=== PATIENT | female | born 1985 | race Caucasian/White ===

== ENCOUNTER 2016-10-21 00:21 | Inpatient (IN) | payer OTHER ==
[~2016-10-21] VITALS: Ht 157.5 cm; Wt 86.2 kg
--- NOTE | 2016-10-21 00:34 | Labor & Delivery Summary ---
Delivery Summary Vaginal Delivery: Vaginal: vertex Episiotomy/Lacerations: Episiotomy/Lacerations: yes Type: first degree Repair: 3-0 polysorb Anesthesia: 8cc nessicaine Placenta: Placenta: spontanteous, normal, 3 vessel Anesthesia: none Baby's Weight: 6# 1oz Apgars - 1 Min: 9 Apgars - 5 Min: 9 Additional Comments: delivered by mon in pts bathroom arrived with placenta in vagina good hemostasis with IM pitocin.
--- NOTE | 2016-10-21 00:58 | History & Physical ---
General Information and HPI MD Statement: I have seen and personally examined LUCIE IZQUIERDO and documented this H&P. The patient is a 30 year old female at [38] weeks and [0] days gestation who presented with a chief complaint of [DELIVERED BABY IN BATHROOM]. 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 Denies: chills, fever. EENTM: Denies: blurred vision, double vision, visual changes. Cardiovascular: Denies: chest pain, edema, palpitations. Respiratory: Denies: orthopnea, short of breath. GI: Denies: abdominal pain, diarrhea, nausea, vomiting. Neurological/Psychological: Denies: anxiety, depressed. Exam & Diagnostic Data Last 24 Hrs of Vital Signs/I&O vss Obstetric Exam Wgt Gained During : 20# Pelvimetry: adequate Dilation (cm): 10 Effacement (%): 100 Station: 0 Membranes: unknown Fluid: unknown Fundal Height (cm): 38 Multiple Gestation? No Contractions: none Patient for Induction? No Physical Exam General Appearance Alert, Oriented X3, Cooperative, Mild Distress Skin No Rashes HEENT Atraumatic Neck Supple Cardiovascular Regular Rate Lungs Clear to Auscultation Abdomen Normal Bowel Sounds, Soft, No Tenderness, No Masses Neurological Normal Speech, Strength at 5/5 X4 Ext, Reflexes 2+ Extremities No Clubbing, No Cyanosis, No Edema Vascular Normal Pulses Reproductive (FEMALE) Normal female genitalia Labs Blood Type & Rh: O pos Antibody Screen: neg Hct/Hgb & Platelets #1: 37.7/12/299 Hct/Hgb & Platelets #2: 32.5/10.3/286 Rubella: imm VDRL #1: nr VDRL #2: nr HbsAg: neg HIV #1: nr HIV #2 nr 1 Hr P Group B Strep: pos Initial Ultrasound: 12/25/2015 8w 2d Anatomy Ultrasound: 06/17/2016 normal Ultrasound for EFW: none Genetic Testing: NIPT normal MSAFP normal Assessment/Plan Assessment/Plan: post out of hospital delivery stable As Ranked By This Provider Problem List: 1. Core Measures/Miscellaneous Venous Thromboembolism VTE Risk Factors: / VTE Contraindications: No Contraindications VTE Prophylaxis Ordered Inpt: Early Ambulation VTE Diagnosis: No Beta Scooter Is Beta Scooter a Home Med? No Antibiotics Is Patient on Antibiotics? No Attending MD Review Statement Attending Statement Attending MD Statement: examined this patient, discussed with family, discussed w/nursing
[2016-10-21 09:22] LABS: ABSOLUTE BASOPHIL COUNT 0 /CUMM (0.0-0.2); ABSOLUTE EOSINOPHIL COUNT 0.1 /CUMM (0.0-0.7); ABSOLUTE LYMPH COUNT 1.8 /CUMM (1.2-3.4); ABSOLUTE MONOCYTE COUNT 0.9 /CUMM (0.10-0.60); BASOPHIL % 0.1 % (0.0-2.0); EOSINOPHIL % 0.3 % (0-5); HEMATOCRIT 33.8 % (37-47); MEAN CORPUSCULAR HGB CONC 32.7 G/DL (33.0-37.0); MEAN CORPUSCULAR VOLUME 76.5 FL (81.0-99.0); MEAN PLATELET VOLUME 9.3 FL (7.4-10.4); PLATELET COUNT 251 /CUMM (130-400); RBC DISTRIBUTION WIDTH 16.2 % (11.5-14.5); RED BLOOD CELL CT 4.42 /CUMM (4.20-5.40); WHITE BLOOD CELL COUNT 19.8 /CUMM (4.8-10.8)
[2016-10-21 09:46] LABS: GRANULOCYTE % 85.9 % (42.2-75.2)
--- NOTE | 2016-10-21 12:55 | PN- OBGYN ---
Surgical Brief Attending Note Brief Attending Note: PPD 0 Home - delivered placenta here w/ repair of 1st degree laceration By Dr Cristian Prescott. Pt's mom assisted in the unplanned home . Her mom states that I was present @ Kate's delivery in December 1987. Pt and were living in [facility] after both had graduated [facility] [employer]. 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 She had her 1st child "Ruiz" @ [facility] and kept her care with that OB\\[employer]OMAT[employer]ILING [employer]ACHINE [employer] group after moving to [place]. [place] to be closer to family @ 1 yr ago. Pt overall doing well. Pt wishes to switch to our group PP to get local care here in the area. Baby and Mom likely to be discharged home (Mom was Gr [facility] + - no antibiotic coverage with unplanned home . Shefali Salas
[2016-10-22] MEDS ORDERED: IBUPROFEN800 M1 PO (08:47)
--- NOTE | 2016-10-22 08:52 | PN- OBGYN ---
Surgical Brief Attending Note Brief Attending Note: PPD#2 pt is ambulating, doing well, no complaints. tolerate diet, void without difficulties. PE: VSS CV RRR Lungs CTA B/L Abdomen: soft, nontender, uterus firm , fundus below umbilicus, lochia mild Ext: DCT (-) A/P: 30yo, s/p home , , PPD #2 1. encourage ambulation 2. RT PP care, will d/c home, f/u in office in 2 wks and 6 wks. precautions given, she understand.
== END 2016-10-22 10:20 | DRG 769 ==
LOC: GNO 00:21
PROVIDERS: ADMIT Obstetrics & Gynecology
PROC: 0HQ9XZZ Repair Perineum Skin, External Approach (ICD-10-PCS; principal; 2016-10-21)
PROC: 10D17ZZ Extraction of Products of Conception, Retained, Via Natural or Artificial Opening (ICD-10-PCS; 2016-10-21)
DX: Z39.0 Encounter for care and examination of mother immediately after delivery (principal); O99.89 Other specified diseases and conditions complicating pregnancy, childbirth and the puerperium; E03.9 Hypothyroidism, unspecified; O70.0 First degree perineal laceration during delivery; O73.0 Retained placenta without hemorrhage; O99.285 Endocrine, nutritional and metabolic diseases complicating the puerperium; O99.53 Diseases of the respiratory system complicating the puerperium; J45.909 Unspecified asthma, uncomplicated; N83.202 Unspecified ovarian cyst, left side
CPT/HCPCS: GNOP; 36415; 80307; 88307; J3490